=== PATIENT | male | born 1980 | race Caucasian/White ===

== ENCOUNTER 2022-02-17 07:41 | Outpatient (CLI) | payer BC, SELFPAY ==
[2022-02-17 12:00] LABS: Cholesterol* 176 mg/dL (90-199); Glucose* 95 mg/dL (60-115)
[2022-02-17 12:01] LABS: HDL Cholesterol* 49 mg/dL (>=40); LDL Cholesterol Calculated 108 mg/dL (<100); Triglycerides* 95 mg/dL (40-149)
== END 2022-02-17 07:42 | disposition home or self-care (01) ==
LOC: NFLDREF 07:41
PROVIDERS: PCP Family Medicine; Visit Provider Family Medicine
DX: Z13.1 Encounter for screening for diabetes mellitus (principal); Z13.6 Encounter for screening for cardiovascular disorders
CPT/HCPCS: 80061; 82947

== ENCOUNTER 2022-03-19 12:33 | Emergency (ER) | payer BC, SELFPAY ==
[2022-03-19 13:10] VITALS: BP 107/73; PULSE 76; RESP 18; TEMP 36.4; O2SAT 97; BMI 37.9
--- NOTE | 2022-03-19 13:38 | CRLHL7_ITS ---
For Patients: As a result of the Century Cures Act, medical imaging exams and procedure reports are released immediately into your electronic medical record. You may view this report before your referring provider. If you have questions, please contact your health care provider. INDICATION: Left-sided flank pain. TECHNIQUE: CT abdomen and pelvis without contrast. COMPARISON: None. FINDINGS: Lower chest: Unremarkable. Liver: Normal in size and attenuation. No suspicious masses. Gallbladder and bile ducts: No stones or inflammation. No biliary dilatation. Pancreas: Unremarkable. No mass or inflammation. Spleen: Normal in size. No masses. Adrenal glands: Normal in size. No nodules. Kidneys: Normal in size. No suspicious masses, stones, or hydronephrosis. GI tract: Unremarkable. Normal in caliber. No sign of mass or inflammation. Normal appendix. Vasculature: Abdominal aorta is normal in caliber. Lymph nodes: No lymphadenopathy. Peritoneum/Abdominal Wall: Unremarkable. No sign of mass or infiltration. No free air or significant free fluid. Pelvic organs: Unremarkable. No pelvic masses. Bones: Unremarkable for age. IMPRESSION: Unremarkable CT of the abdomen and pelvis. No findings to explain left flank pain. Please note that all CT scans at this facility use dose modulation, iterative reconstruction, and/or weight-based dosing when appropriate to reduce radiation dose to as low as reasonably achievable. Dictated by Raymundo Carrizales MD @ 03/19/2022 2:32:14 PM (Electronically Signed)
--- NOTE | 2022-03-19 13:46 | ED_ITS ---
HPI - Abdominal Pain General Chief Complaint: Flank Pain Stated Complaint: Pain in left flank area Time Seen by Provider: 03/19/22 13:10 History of Present Illness HPI narrative: 41-year-old man presenting to the emergency department with concern of left flank area pain now 4th day. Slight dysuria. Also with a sense of urgency. Seems like it takes longer to urinate as well and not getting quite as much. He has had no fever no hematuria. History of back problems and thought maybe he pulled something but this is different. It feels better to stand or lean against something pressure on his back. Ice night he says is pretty rough company by pain nausea. Admittedly better now. Pain was occurring independently movement which was atypical for him with his back pains before. Admittedly this was rather sudden onset. treatment attempted with hydration 400 mg of ibuprofen. Just not getting any relief. Also tried heating pad. Does have a 10-week-old at home and thought maybe he had pulled something. He gestures in an area consistent with flank to groin on the left side. Does recall family history where his dad had nephrolithiasis Related Data Home Medications Medication Instructions Recorded Confirmed multivitamin with iron 1 tab PO QDAY 02/09/22 03/19/22 Previous Rx's Medication Instructions Recorded cyclobenzaprine 5 mg tablet 5 mg PO TID PRN muscle spasm #20 02/09/22 tabs tamsulosin 0.4 mg capsule (Flomax) 0.4 mg PO DAILY #7 caps 03/19/22 Allergies Allergy/AdvReac Type Severity Reaction Status Date / Time No Known Allergies Allergy Unknown Verified 03/19/22 11:26 Review of Systems Status of ROS Reports: 10 or more systems reviewed and unremarkable except as noted in History and below [facility] Medical History No significant past medical history Surgical History History of arthroscopy of left knee (1995) History of lumbar discectomy (2007) Family History (Updated 02/09/22 @ 15:13 by Derek Camara MD) Father Coronary artery disease Diabetes Mother Diabetes Unknown Coronary artery disease Skin cancer Bone cancer Thyroid cancer Maternal Grandmother Stroke Social History (Updated 02/09/22 @ 15:10 by Derek Camara MD) Narrative: Social history: . He has 3 sons ages 10, 7, 5, 4wks. 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 has family near [place]. Habits: No tob or rec drug use. Alcohol use at 3 drinks/wk. Smoking Status: Never smoker Non-prescribed substance use: denies use Little interest or pleasure in doing things: not at all Feeling down, depressed, or hopeless: several days Exam Narrative: Exam Narrative: Pleasant. Large man. No significant distress. Breathing easily. Skin is warm and dry without rash. Cardiovascular was regular rate and rhythm Lungs are clear. Abdomen is overweight soft. Not really reproducible tenderness. Back is nontender. Extremities are without edema. Well perfused. Indeed transitions without difficulty but notes increased sense of intra-abdominal pressure when seated forward. Symmetrical pulses Genitourinary not examined. Const: Vital Signs, click to edit/add: Vital Signs - 24 hr 03/19/22 13:10 Temperature 97.5 F L Pulse Rate [Right Pulse Oximeter] 76 Respiratory Rate 18 Blood Pressure [Ri ght Upper Arm] 107/73 Pulse Oximetry 97 Oxygen Delivery Me thod Room Air Documenting provider has reviewed patient's vital signs: yes Course Course Hospital Course: Labs were drawn. IV established. Given normal saline and ketorolac with improvement in symptoms. Vital Signs Vital signs: Initial Vital Signs Temperature 97.5 F L 03/19/22 13:10 Temperature Source Temporal Artery Scan 03/19/22 13:10 Pulse Rate 76 03/19/22 13:10 Respiratory Rate 18 03/19/22 13:10 Blood Pressure 107/73 03/19/22 13:10 Blood Pressure Mean 84 03/19/22 13:10 Blood Pressure Position Sitting 03/19/22 13:10 Pulse Oximetry 97 03/19/22 13:10 Oxygen Delivery Method 03/19/22 13:10 Vital Signs Temperature 97.5 F L 03/19/22 13:10 Pulse Rate 76 03/19/22 13:10 Respiratory Rate 18 03/19/22 13:10 Blood Pressure 107/73 03/19/22 13:10 Pulse Oximetry 97 03/19/22 13:10 Oxygen Delivery Method 03/19/22 13:10 Temperature 97.5 F L 03/19/22 13:10 Pulse Rate 62 03/19/22 14:53 Respiratory Rate 18 03/19/22 14:53 Blood Pressure 112/62 03/19/22 14:53 Pulse Oximetry 98 03/19/22 14:53 Oxygen Delivery Method 03/19/22 13:10 MDM - Abdominal Pain MDM Narrative Medical decision making narrative: Certainly a good story for nephrolithiasis. Given this 1st occurrence CT imaging I think was warranted. I did review these images and can see multiple calcifications may be more phleboliths... Do not see hydronephrosis. Radiology over-read of imaging did not appreciate anything to account for the left flank area pain is described. No evidence of vascular disruption. Urinalysis with small hematuria. Perhaps passed stone and this is residual? Medical Records Attestation: I reviewed the patient's medical records. Lab Data Attestation: I reviewed the patient's lab results. Labs: Lab Results 03/19/22 03/19/22 03/19/22 Range/Units 13:38 14:10 14:10 WBC 6.17 (4.50-11.00) K/uL RBC 4.79 (4.30-5.90) m/uL Hgb 14.1 (13.5-17.5) gm/dL Hct 42.7 (37.0-53.0) % MCV 89 (80-100) fL MCH 29 (26-34) pg MCHC 33 (32-36) gm/dL RDW Coeff of Irish 12.0 (11.5-15.5) % Plt Count 241 (140-440) K/uL Neut % (Auto) 51.8 (42.0-72.0) % Lymph % (Auto) 36.3 (20-44) % [place] % (Auto) 8.6 (0.0-11.0) % Eos % (Auto) 2.8 (0.0-7.0) % Baso % (Auto) 0.3 (0.0-3.0) % Neut # (Auto) 3.20 (1.7-7.0) K/uL Lymph # (Auto) 2.24 (0.90-2.90) K/uL [place] # (Auto) 0.50 (0.00-0.90) K/UL Eos # (Auto) 0.17 (0.00-0.50) K/uL Baso # (Auto) 0.02 (0.00-0.30) K/uL Abs Immat Gran (auto) 0.01 (0.00-0.30) K/uL Sodium 139 (135-149) mmol/L Potassium 4.2 (3.6-5.1) mmol/L Chloride 102 (96-114) mmol/L Carbon Dioxide 29 (20-32) mmol/L BUN 15 (5-24) mg/dL Creatinine 0.8 (0.5-1.5) mg/dL Estimated Creat Clear 150.05 Estimated GFR 113 ml/min Glucose 90 (60-115) mg/dL Calcium 9.3 (8.4-10.6) mg/dL Urine Color Yellow (Yellow) Urine Appearance Clear (Clear) Urine pH 7.0 (5.0-8.5) Ur Specific [place] 1.010 (1.000-1.030) Urine Protein Negative (Negative) Urine Glucose (UA) Negative (Negative) Urine Ketones Negative (Negative) Urine Blood 1+ A (Negative) Urine Nitrite Negative (Negative) Urine Bilirubin Negative (Negative) Urine Urobilinogen 0.2 (0.2-1.0) Ur Leukocyte Esterase Negative (Negative) Urine RBC 2-5 A (0-2) Urine WBC 0-2 (0-5) Ur Squamous Epith Cells None (None-Few) Urine Bacteria None (None) Discharge Plan Discharge Clinical Impression: Hematuria, Flank pain Patient Disposition: Home, Self-Care Condition: Improved Additional Instructions: focus on hydration. Can take up to 800 mg of ibuprofen per dose. This can be combined with your prescribed medications. The Flomax can help with ureteral spasm and subsequent pain -- take daily over the next few days. Follow up for pain lasting for 5 more days.. Be seen otherwise for marked increase in/uncontrolled pain, repeated vomiting, fever. Strain urine over this next week. Percocet and Zofran from [facility] Prescriptions: New tamsulosin [Flomax] 0.4 mg capsule 0.4 mg PO DAILY Qty: 7 1RF No Action multivitamin with iron Tablet 1 tab PO QDAY cyclobenzaprine 5 mg tablet 5 mg PO TID PRN (Reason: muscle spasm) Qty: 20 2RF Follow Up/Referrals: Provider,Not a Local [Primary Care Provider] - Stand Alone Forms: [facility] Info Instructions
[2022-03-19] MEDS: 0.9 % SODIUM CHLORIDE 1000 ml 1,000 ML IV (14:05)
[2022-03-19] MEDS: KETOROLAC 30 MG/ML inj IVP (14:05)
[2022-03-19 14:20] LABS: Basophils Absolute Auto 0.02 K/uL (0.00-0.30); Basophils Percent Auto 0.3 % (0.0-3.0); Eosinophils Absolute Auto 0.17 K/uL (0.00-0.50); Eosinophils Percent Auto 2.8 % (0.0-7.0); Hematocrit 42.7 % (37.0-53.0); Hemoglobin* 14.1 gm/dL (13.5-17.5); Immature Granulocytes Abs Auto 0.01 K/uL (0.00-0.30); Lymphocytes Absolute Auto 2.24 K/uL (0.90-2.90); Lymphocytes Percent Auto 36.3 % (20-44); Mean Corpuscular HGB Conc 33 gm/dL (32-36); Mean Corpuscular Hemoglobin 29 pg (26-34); Mean Corpuscular Volume 89 fL (80-100); Monocytes Percent Auto 8.6 % (0.0-11.0); Neutrophils Percent Auto 51.8 % (42.0-72.0); Platelet Count* 241 K/uL (140-440); Red Blood Count 4.79 m/uL (4.30-5.90); White Blood Count* 6.17 K/uL (4.50-11.00)
[2022-03-19 14:32] LABS: Slide Review Reflex No
[2022-03-19 14:34] LABS: Chloride* 102 mmol/L (96-114); Sodium* 139 mmol/L (135-149)
[2022-03-19 14:35] LABS: Potassium* 4.2 mmol/L (3.6-5.1)
[2022-03-19 14:35] LABS: Appearance Urine Clear (Clear); Bilirubin Urine Negative (Negative); Blood Urine 1+ (Negative); Color Urine Yellow (Yellow); Glucose Urine Negative (Negative); Ketones Urine Negative (Negative); Leukocyte Esterase Urine Negative (Negative); Nitrite Urine Negative (Negative); Protein Urine Negative (Negative); Urobilinogen Urine 0.2 (0.2-1.0)
[2022-03-19 14:37] LABS: Creatinine* 0.8 mg/dL (0.5-1.5); Est. Creatinine Clearance* 150.05; Estimated Glomerular Filt Rate 113 ml/min
[2022-03-19 14:38] LABS: Blood Urea Nitrogen* 15 mg/dL (5-24); Calcium* 9.3 mg/dL (8.4-10.6); Carbon Dioxide* 29 mmol/L (20-32); Glucose* 90 mg/dL (60-115)
[2022-03-19 14:53] VITALS: BP 112/62; PULSE 62; RESP 18; O2SAT 98
[2022-03-19 14:57] LABS: WBC Urine 0-2 (0-5)
--- NOTE | 2022-03-19 15:56 | ED.NURSE ---
[facility] for percocet and zofran given to pt
== END 2022-03-19 15:57 | disposition home or self-care (01) ==
PROVIDERS: Emergency Provider Family Medicine
DX: R31.9 Hematuria, unspecified (principal); R10.9 Unspecified abdominal pain
CPT/HCPCS: 36415; 74176; 80048; 81003; 81015; 85025; 96374; 99284; J1885; J7030

== ENCOUNTER 2023-04-17 19:20 | Emergency (ER) | payer BC, SELFPAY ==
[2023-04-17 19:36] VITALS: BP 113/68; PULSE 77; RESP 16; TEMP 36.6; O2SAT 97; BMI 37.5
--- NOTE | 2023-04-17 19:53 | ED_ITS ---
HPI - General Adult General Date Seen: 04/17/23 Chief complaint: Laceration/Wound Stated complaint: Head wound bleeding, alert Time Seen by Provider: 04/17/23 19:31 Source: patient Mode of arrival: ambulatory Limitations: no limitations History of Present Illness HPI narrative: Patient is a 42-year-old male presents emergency department for laceration to his left scalp above the hairline on the front. 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 States there was quite a bit of blood so came to the emergency department to be evaluated. Denies any lightheadedness, dizziness, numbness, weakness. States he feels well at this time. Is not on any blood thinners. No other concerns at this time. Related Data Home Medications Medication Instructions Recorded Confirmed multivitamin with iron 1 tab PO QDAY 02/09/22 01/28/23 fluticasone propionate 50 1 spray intranasal QDAY 01/07/23 01/28/23 mcg/actuation nasal spray,suspension (Flonase Allergy Relief) Previous Rx's Medication Instructions Recorded bupropion HCl 300 mg 24 hr tablet, 300 mg PO QAM #90 tabs 02/22/23 extended release (Wellbutrin XL) Allergies Allergy/AdvReac Type Severity Reaction Status Date / Time No Known Drug Allergies Allergy Verified 01/28/23 13:46 Review of Systems Status of ROS: Reports: 6 or more systems reviewed and unremarkable except as noted in History and below PFSH PFS Medical History 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 - Other obesity due to excess calories (ICD-10) Major depression, single episode ?F32.9 - Major depressive disorder, single episode, unspecified (ICD-10) Surgical History S/P vasectomy ?Z98.52 - Vasectomy status (ICD-10) History of lumbar discectomy (2007) ?Z98.890 - Other specified postprocedural states (ICD-10) History of arthroscopy of left knee (1995) ?Z98.890 - Other specified postprocedural states (ICD-10) Family History Father Coronary artery disease Diabetes Mother Diabetes Unknown Coronary artery disease Skin cancer Bone cancer Thyroid cancer Maternal Grandmother Stroke Social History Narrative: Social history: . He has 3 sons ages 10, 7, 5, 4wks. 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 Habits: No tob or rec drug use. Alcohol use at 3 drinks/wk. Smoking Status: Never smoker Non-prescribed substance use: denies use Little interest or pleasure in doing things: several days Feeling down, depressed, or hopeless: several days Exam Const: Vital Signs, click to edit/add: Vital Signs - 24 hr 04/17/23 19:36 Temperature 97.8 F Pulse Rate [Right Pulse Oximeter] 77 Respiratory Rate 16 Blood Pressure [Ri ght Upper Arm] 113/68 Pulse Oximetry 97 Oxygen Delivery Me thod Room Air Course Vital Signs Vital signs: Initial Vital Signs Temperature 97.8 F 04/17/23 19:36 Temperature Source Temporal Artery Scan 04/17/23 19:36 Pulse Rate 77 04/17/23 19:36 Pulse Rhythm Regular 04/17/23 19:36 Respiratory Rate 16 04/17/23 19:36 Blood Pressure 113/68 04/17/23 19:36 Blood Pressure Mean 83 04/17/23 19:36 Blood Pressure Position Sitting 04/17/23 19:36 Pulse Oximetry 97 04/17/23 19:36 Oxygen Delivery Method Room Air 04/17/23 19:36 Vital Signs Temperature 97.8 F 04/17/23 19:36 Pulse Rate 77 04/17/23 19:36 Respiratory Rate 16 04/17/23 19:36 Blood Pressure 113/68 04/17/23 19:36 Pulse Oximetry 97 04/17/23 19:36 Oxygen Delivery Method Room Air 04/17/23 19:36 Temperature 97.8 F 04/17/23 19:36 Pulse Rate 77 04/17/23 19:36 Respiratory Rate 16 04/17/23 19:36 Blood Pressure 113/68 04/17/23 19:36 Pulse Oximetry 97 04/17/23 19:36 Oxygen Delivery Method Room Air 04/17/23 19:36 Medical Decision Making MDM Narrative Medical decision making narrative: Patient is a 42-year-old male with no medical issues who presents emergency department after he hit his head against the luminal window. There is a 1 cm laceration to his left frontal hairline. It is not currently bleeding. There is very small separation of the wound edges. When I attempt to pull the wound edges apart they barely move. The wound was cleaned. I do not believe sutures or harsh are necessary at this time and will just put some skin glue over the area. It was a relatively mild head injury not not believe imaging is necessary at this time. He is having no focal neurological deficits. Very unlikely to have an intracranial hemorrhage from this type of injury. He can be discharged home he agrees with this plan. Discharge Plan Discharge Clinical Impression: Laceration Patient Disposition: Home, Self-Care Condition: Stable Instructions: Head Laceration (ED) Additional Instructions: Follow-up with the primary care provider. Return for new worsening symptoms. Prescriptions: No Action multivitamin with iron Tablet 1 tab PO QDAY fluticasone propionate [Flonase Allergy Relief] 50 mcg/actuation spray,suspension 1 spray intranasal QDAY Rx Instructions: administer into each nostril bupropion HCl [Wellbutrin XL] 300 mg tablet extended release 24 hr 300 mg PO QAM Qty: 90 1RF Follow Up/Referrals: Dustin Walter MD [Primary Care Provider] - Stand Alone Forms: [employer] Info Instructions
== END 2023-04-17 20:15 | disposition home or self-care (01) ==
LOC: ED 20:14
PROVIDERS: Emergency Provider Student in an Organized Health Care Education/Training Program; PCP Family Medicine
DX: S01.01XA Laceration without foreign body of scalp, initial encounter (principal); W22.09XA Striking against other stationary object, initial encounter
CPT/HCPCS: 12001; 99282

== ENCOUNTER 2024-05-15 14:15 | Outpatient (RCR) | payer BC, SELFPAY | END 2024-09-12 23:59 | disposition home or self-care (01) | PROVIDERS: PCP Family Medicine; Visit Provider Physician Assistant | DX: M54.12 Radiculopathy, cervical region (principal); M54.2 Cervicalgia; M25.511 Pain in right shoulder; R53.1 Weakness; Z51.89 Encounter for other specified aftercare | CPT/HCPCS: 97110; 97140; 97161 ==

== ENCOUNTER 2024-05-22 18:42 | Emergency (ER) | payer BC, SELFPAY ==
[2024-05-22 18:46] VITALS: BP 158/80; PULSE 102; RESP 18; TEMP 36.5; O2SAT 96; BMI 37.7
--- NOTE | 2024-05-22 18:54 | CRLHL7_ITS ---
For Patients: As a result of the Cures Act, medical imaging exams and procedure reports are released immediately into your electronic medical record. You may view this report before your referring provider. If you have questions, please contact your health care provider. INDICATION: Right elbow pain, injury TECHNIQUE: Elbow radiograph 3 views right COMPARISON: None FINDINGS: Bone: No acute fractures or aggressive bone lesions are identified. Joint: The elbow joint is unremarkable. No significant displacement of the anterior or posterior fat pads noted to suggest an effusion. Soft tissue: Unremarkable. No radiopaque foreign bodies are seen. IMPRESSION: 1. No acute osseous injuries or abnormalities are noted. Dictated by: Migel Fournier MD @ 05/22/2024 19:24:30 (Electronically Signed)
[2024-05-22] MEDS: OXYCODONE 5 MG TABLET PO (18:59)
[2024-05-22 19:00] VITALS: TEMP 36.5
[2024-05-22] MEDS: IBUPROFEN 200 MG TABLET 400 MG PO (19:00)
--- NOTE | 2024-05-22 19:01 | ED_ITS ---
HPI - General Adult General Date Seen: 05/22/24 Chief complaint: Extremity Pain/Injury, Upper Stated complaint: R - Elbow injury Time Seen by Provider: 05/22/24 18:51 Source: patient Mode of arrival: ambulatory Limitations: no limitations History of Present Illness HPI narrative: Patient is a 56-year-old male who says that he grabbed his dog's collar she was running at full speed to stop her from leaving the yd. His right arm was pulled back away from his body any felt a pop in his upper arm. He now has pain and swelling in what he calls his ?elbow pit, the antecubital fossa, and is unable to flex at the elbow. No other injuries or complaints. Related Data Home Medications ?Medication ?Instructions ?Recorded ?Confirmed multivitamin with iron 1 tab PO QDAY 02/09/22 05/07/24 fluticasone propionate 50 1 spray intranasal QDAY 01/07/23 05/07/24 mcg/actuation nasal spray,suspension (Flonase Allergy Relief) Previous Rx's ?Medication ?Instructions ?Recorded escitalopram oxalate 10 mg tablet 10 mg PO QDAY #90 tabs 10/07/23 cyclobenzaprine 5 mg tablet 5 - 10 mg (1 - 2 x 5 mg) PO QHS 04/27/24 PRN muscle spasm #20 tabs bupropion HCl 150 mg 24 hr tablet, 150 mg PO QAM #90 tabs 05/07/24 extended release Allergies Allergy/AdvReac Type Severity Reaction Status Date / Time No Known Drug Allergies Allergy Verified 05/07/24 08:18 [facility] Medical History Acute sinusitis ?J01.90 - Acute sinusitis, unspecified (ICD-10) 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 - Other obesity due to excess calories (ICD-10) Major depression, single episode ?F32.9 - Major depressive disorder, single episode, unspecified (ICD-10) Surgical History S/P vasectomy ?Z98.52 - Vasectomy status (ICD-10) History of lumbar discectomy (2007) ?Z98.890 - Other specified postprocedural states (ICD-10) History of arthroscopy of left knee (1995) ?Z98.890 - Other specified postprocedural states (ICD-10) Family History Father Coronary artery disease Diabetes Mother Diabetes Unknown Coronary artery disease Skin cancer Bone cancer Thyroid cancer Maternal Grandmother Stroke Social History Narrative: Social history: . He has 3 sons ages 10, 7, 5, 4wks. 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 Habits: No tob or rec drug use. Alcohol use at 3 drinks/wk. Smoking Status: Never smoker Second hand tobacco smoke exposure: No How often do you have a drink containing alcohol: never AUDIT-C Alcohol total score: 0 Non-prescribed substance use: denies use Little interest or pleasure in doing things: not at all Feeling down, depressed, or hopeless: not at all Exam Narrative: Exam Narrative: Vital signs reviewed Examination of the right upper extremity shows some mild swelling of the antecubital fossa, some tenderness over the biceps. No significant bruising, no erythema. No bony tenderness over the olecranon. Forearm and hand are atraumatic. Shoulder nontender to palpation. Const: Vital Signs, click to edit/add: Vital Signs - 24 hr 05/22/24 18:46 05/22/24 19:00 Temperature 97.7 F 97.7 F Pulse Rate [Right Pulse Oximeter] 102 H Respiratory Rate 18 Blood Pressure [Le ft Upper Arm] 158/80 H Pulse Oximetry 96 Oxygen Delivery Me thod Room Air Documenting provider has reviewed patient's vital signs: yes Course Course ED Course: Clinically I suspect a distal biceps tendon rupture, will obtain x-ray of the elbow to rule out bony injury, plan for sling and early orthopedic referral. He was given ibuprofen 400 mg and oxycodone 1 5 mg tablet here. Vital Signs Vital signs: Initial Vital Signs Temperature 97.7 F 05/22/24 18:46 Temperature Source Temporal Artery Scan 05/22/24 18:46 Pulse Rate 102 H 05/22/24 18:46 Respiratory Rate 18 05/22/24 18:46 Blood Pressure 158/80 H 05/22/24 18:46 Blood Pressure Mean 106 H 05/22/24 18:46 Blood Pressure Position Sitting 05/22/24 18:46 Pulse Oximetry 96 05/22/24 18:46 Oxygen Delivery Method Room Air 05/22/24 18:46 Vital Signs Temperature 97.7 F 05/22/24 18:46 Pulse Rate 102 H 05/22/24 18:46 Respiratory Rate 18 05/22/24 18:46 Blood Pressure 158/80 H 05/22/24 18:46 Pulse Oximetry 96 05/22/24 18:46 Oxygen Delivery Method Room Air 05/22/24 18:46 Temperature 97.7 F 05/22/24 19:00 Pulse Rate 102 H 05/22/24 18:46 Respiratory Rate 18 05/22/24 18:46 Blood Pressure 158/80 H 05/22/24 18:46 Pulse Oximetry 96 05/22/24 18:46 Oxygen Delivery Method Room Air 05/22/24 18:46 Medications Administered Medications: Discontinued Medications Generic Name Dose Route Start Last Admin Trade Name Davonq PRN Reason Stop Dose Admin Ibuprofen 400 mg 05/22/24 18:54 05/22/24 19:00 Ibuprofen 200 Mg Tablet PO 05/22/24 18:55 400 mg ONCE ONE Administration Oxycodone HCl 5 mg 05/22/24 18:54 05/22/24 18:59 Oxycodone 5 Mg Tablet PO 05/22/24 18:55 5 mg ONCE ONE Administration Medical Decision Making Imaging Data Elbow x-ray: Radiologist's impression: Patient: Lexa Villalobos MR#: [id number] : 1980 Acct:[id number] Loc: ED Service Date: 05/22/[address]: Ordering Physician: Yarelis Catalan M.D. Date of Service: 05/22/24 Procedure(s): XR elbow RT min 3V Accession Number(s): [id number] cc: Yarelis Catalan M.D.; Dustin Walter M.D.~ For Patients: As a result of the Cures Act, medical imaging exams and procedure reports are released immediately into your electronic medical record. You may view this report before your referring provider. If you have questions, please contact your health care provider. INDICATION: Right elbow pain, injury TECHNIQUE: Elbow radiograph 3 views right COMPARISON: None FINDINGS: Bone: No acute fractures or aggressive bone lesions are identified. Joint: The elbow joint is unremarkable. No significant displacement of the anterior or posterior fat pads noted to suggest an effusion. Soft tissue: Unremarkable. No radiopaque foreign bodies are seen. IMPRESSION: 1. No acute osseous injuries or abnormalities are noted. Dictated by: Migel Fournier MD @ 05/22/2024 19:24:30 Discharge Plan Discharge Clinical Impression: Rupture of right distal biceps tendon Patient Disposition: Home, Self-Care Condition: Stable Instructions: Tendon Rupture (ED) Additional Instructions: Orthopedic follow-up as scheduled. Ibuprofen and/or Tylenol as needed for pain, ice liberally over the next few days to week. Oxycodone if needed for severe uncontrolled pain. This is most likely a surgical problem, timely orthopedic follow-up is very important. Prescriptions: No Action multivitamin with iron Tablet 1 tab PO QDAY bupropion HCl 150 mg tablet extended release 24 hr 150 mg PO QAM Qty: 90 1RF fluticasone propionate [Flonase Allergy Relief] 50 mcg/actuation spray,suspension 1 spray intranasal QDAY Rx Instructions: administer into each nostril cyclobenzaprine 5 mg tablet 5 - 10 mg PO QHS PRN (Reason: muscle spasm) Qty: 20 0RF escitalopram oxalate 10 mg tablet 10 mg PO QDAY Qty: 90 1RF Follow Up/Referrals: Dustin Walter MD [Primary Care Provider] - Stand Alone [facility]: [facility] Info Instructions
--- OUTSIDE RECORDS SUMMARY | 2024-05-22 19:33 | XMS_ITS | Clinical Summary ---
Author Organization [employer] [facility] Address [place], [place] [address] Care Team Providers Care Balancing Machine Set Up Worker Name Role Phone Pcp, No Primary Care Provider Unavailabl e Allergies No known active allergies Medications No known medications Social History Tobacco Use Types Packs/Day Years Used Date Smoking Tobacco: Never Smokeless Tobacco: Never Tobacco Cessation:Counseling Given: Yes Alcohol Use Standard Drinks/Week Comments Yes 0 (1 standard drink = 0.6 oz pur e alcohol) Sex and Gender Information Value Date Recorded Sex Assigned at Not on file Gender Identity Not on file Sexual Orientation Not on file Obstetrics History Last Filed Vital Signs Vital Sign Reading Time Taken Comments Blood Pressure 127/80 06/30/2021 3:19 PM UNINDENTURED APPRENTICE Pulse 80 06/30/2021 3:19 PM UNINDENTURED APPRENTICE Temperature 36.5 ??C (97.7 ??F) 06/30/2021 3:19 PM CS T Respiratory Rate 16 06/30/2021 3:19 PM UNINDENTURED APPRENTICE Oxygen Saturation 97% 06/30/2021 3:19 PM UNINDENTURED APPRENTICE Inhaled Oxygen Concentration - - Weight 141.7 kg (312 lb 4.8 oz) 06/30/2021 3:19 PM UNINDENTURED APPRENTICE Height 195.6 cm (6' 5.01) 07/12/2019 8:03 AM CS T Body Mass Index 37.03 07/12/2019 8:03 AM UNINDENTURED APPRENTICE Plan of Treatment Health Maintenance Due Date Last Done Comments Tdap 1989 Depression screening for age 12+ 1990 HIV for age 15-65 1993 Hepatitis C screening for ag e 18-79 1996 Tetanus booster 1998 BMI (ht and wt on same day) for age 18+ 07/12/2020 07/12/2019, 06/03/2018 Colonoscopy through age 75 2023 Lipids for age 45-75 2023 COVID-19 vaccine series ( season) 2024 11/21/2020, 10/31/2020 Influenza for age 9-49 04/01/2024 Pneumococcal series for age 6-64 Aged Out No longer eligible b ased on patient's age to complete this topic Care Teams Balancing Machine Set Up Worker Relationship Specialty Start Date End Date Pcp, No . PCP - General 06/03/18
[2024-05-22 19:57] VITALS: BP 135/74; PULSE 89; RESP 18; TEMP 36.5; O2SAT 96
[2024-05-22 19:58] VITALS: BP 135/74; PULSE 89; RESP 18; TEMP 36.5
== END 2024-05-22 19:58 | disposition home or self-care (01) ==
LOC: ED 19:31
PROVIDERS: Emergency Provider Emergency Medicine; PCP Family Medicine
DX: S46.211A Strain of muscle, fascia and tendon of other parts of biceps, right arm, initial encounter (principal)
CPT/HCPCS: 73080; 99283; 99284; A9270

== ENCOUNTER 2024-05-29 07:02 | Outpatient (CLI) | payer BC, SELFPAY ==
--- OUTSIDE RECORDS SUMMARY | 2024-05-29 07:03 | XMS_ITS | Clinical Summary ---
Author Organization [employer] [facility] Address [place], [place] [address] Care Team Providers Care Icu Rn Name Role Phone Pcp, No Primary Care [...] Comments Blood Pressure 127/80 06/30/2021 3:19 PM RECEIVING COORDINATOR Pulse 80 06/30/2021 3:19 PM RECEIVING COORDINATOR Temperature 36.5 ??C (97.7 ??F) 06/30/2021 3:19 PM CS T Respiratory Rate 16 06/30/2021 3:19 PM RECEIVING COORDINATOR Oxygen Saturation 97% 06/30/2021 3:19 PM RECEIVING COORDINATOR Inhaled Oxygen Concentration - - Weight 141.7 kg (312 lb 4.8 oz) 06/30/2021 3:19 PM RECEIVING COORDINATOR Height 195.6 cm (6' 5.01) 07/12/2019 8:03 AM CS T Body Mass Index 37.03 07/12/2019 8:03 AM RECEIVING COORDINATOR Plan of Treatment Health Maintenance Due Date [...] age to complete this topic Care Teams Icu Rn Relationship Specialty Start Date End Date Pcp, No . PCP - General 06/03/18
--- NOTE | 2024-05-29 07:15 | MR_ITS ---
[address] [address] Phone:?[phone] Fax:?[phone] Referring Physician Information: Glen Richards M.D. [address] [place] [id number] Phone:?[phone] Fax:?[phone] Patient:Louis Villalobos Avi.B:?1980 Sex:?Male Phone:?[phone] [facility] MRN:?[id number] Exam Date:?05/29/2024 EXAM: MRI EXAMINATION OF THE RIGHT ELBOW CLINICAL INFORMATION: Right elbow pain. Injury. No history of surgery to this area. Evaluate biceps tendon tear. TECHNICAL INFORMATION: Axial PD and T2. Coronal PD, T2, STIR and T1. Sagittal PD and T2-weighted images acquired. No prior studies for comparison. INTERPRETATION: Bones, joint and osteochondral surfaces: No significant elbow joint effusion. No discrete loose body is seen. No evidence for an occult fracture or osseous contusion. No discrete osteochondral lesion is seen. No appreciable changes of elbow joint osteoarthritis. No other abnormal marrow edema pattern identified. Tendons: The brachialis and triceps tendon insertions are seen to be intact. Residua of injury and complete rupture of the expected radial tuberosity insertion of the biceps brachii tendon. As seen on series 12 image 21 as well as series 6 images 22 through 27, thickened and and irregular torn tendon fibers are retracted to the level of the elbow joint line. Moderate soft tissue fluid and edema signal to indicate associated hemorrhage and inflammation. The common flexor origin at the medial humeral epicondyle is intact. Series 6 image 22 as well as series 9 images 21 through 23 demonstrate a 0.9 cm AP by 0.4 cm craniocaudal low to moderate grade partial-thickness tear through the central three fourths of the common extensor tendon origin. Mild to moderate surrounding thickening of the tendon fibers. Ligaments: The ulnar collateral ligament is intact without evidence of acute sprain or tear. The radial collateral and lateral ulnar collateral ligaments appear grossly intact. Nerves: The ulnar nerve appears unremarkable coursing past the elbow and through the cubital tunnel. CONCLUSION: 1. Acute or subacute injury and complete rupture of the expected biceps brachii tendon insertion. Torn tendon fibers are retracted to the level of the elbow joint line. Moderate associated soft tissue hemorrhage and inflammation. 2. No occult fracture, osseous contusion or osteochondral lesion. 3. Tendinopathy with mild to moderate thickening of the common extensor tendon origin. There is a 9 x 4 mm low to moderate grade partial-thickness tear through the central three fourths of the tendon origin. 4. Intact appearance of the elbow ligaments, specifically without acute injury. 5. No joint effusion or loose body. KES Electronically signed on 05/29/2024 12:15:00 PM by Hubert Le M.D.
== END 2024-05-29 07:03 | disposition home or self-care (01) ==
LOC: MRI 07:02
PROVIDERS: PCP Family Medicine; Visit Provider Orthopaedic Surgery
DX: M25.521 Pain in right elbow (principal); S46.211A Strain of muscle, fascia and tendon of other parts of biceps, right arm, initial encounter
CPT/HCPCS: 73221

== ENCOUNTER 2024-06-05 09:30 | Outpatient (CLI) | payer BC, SELFPAY ==
--- OUTSIDE RECORDS SUMMARY | 2024-06-07 11:02 | XMS_ITS | Clinical Summary ---
Author Organization [employer] [facility] Address [place], [place] [address] Care Team Providers Care Survey Crew Chief Name Role Phone Pcp, No Primary Care [...] Comments Blood Pressure 127/80 06/30/2021 3:19 PM LIVE IN COMPANION Pulse 80 06/30/2021 3:19 PM LIVE IN COMPANION Temperature 36.5 ??C (97.7 ??F) 06/30/2021 3:19 PM CS T Respiratory Rate 16 06/30/2021 3:19 PM LIVE IN COMPANION Oxygen Saturation 97% 06/30/2021 3:19 PM LIVE IN COMPANION Inhaled Oxygen Concentration - - Weight 141.7 kg (312 lb 4.8 oz) 06/30/2021 3:19 PM LIVE IN COMPANION Height 195.6 cm (6' 5.01) 07/12/2019 8:03 AM CS T Body Mass Index 37.03 07/12/2019 8:03 AM LIVE IN COMPANION Plan of Treatment Health Maintenance Due Date [...] age to complete this topic Care Teams Survey Crew Chief Relationship Specialty Start Date End Date Pcp, No . PCP - General 06/03/18
== END 2024-06-05 09:31 | disposition home or self-care (01) ==
LOC: NFLDREF 06-07 10:59
PROVIDERS: PCP Family Medicine; Referring Provider Family Medicine; Visit Provider Family Medicine
DX: Z01.818 Encounter for other preprocedural examination (principal); E66.09 Other obesity due to excess calories; Z13.6 Encounter for screening for cardiovascular disorders
CPT/HCPCS: 80048; 80061; 85025

== ENCOUNTER 2024-06-12 10:46 | Day surgery (SDC) | payer BC, SELFPAY ==
[2024-06-12] VITALS (8 sets, daily range): BP systolic 101–130; BP diastolic 60–88; PULSE 65–84; RESP 16–20; TEMP 36.5–36.9; O2SAT 95–98; BMI 39.2
--- OUTSIDE RECORDS SUMMARY | 2024-06-12 10:48 | XMS_ITS | Clinical Summary ---
Author Organization [employer] [facility] Address [place], [place] [address] Care Team Providers Care Bag Mender Name Role Phone Pcp, No Primary Care [...] Comments Blood Pressure 127/80 06/30/2021 3:19 PM GEAR REPAIRER Pulse 80 06/30/2021 3:19 PM GEAR REPAIRER Temperature 36.5 ??C (97.7 ??F) 06/30/2021 3:19 PM CS T Respiratory Rate 16 06/30/2021 3:19 PM GEAR REPAIRER Oxygen Saturation 97% 06/30/2021 3:19 PM GEAR REPAIRER Inhaled Oxygen Concentration - - Weight 141.7 kg (312 lb 4.8 oz) 06/30/2021 3:19 PM GEAR REPAIRER Height 195.6 cm (6' 5.01) 07/12/2019 8:03 AM CS T Body Mass Index 37.03 07/12/2019 8:03 AM GEAR REPAIRER Plan of Treatment Health Maintenance Due Date [...] age to complete this topic Care Teams Bag Mender Relationship Specialty Start Date End Date Pcp, No . PCP - General 06/03/18
[2024-06-12] MEDS: SODIUM CHLORIDE 0.9 % (FLUSH) 10 ML SYRINGE IVF (11:41)
[2024-06-12] MEDS: MIDAZOLAM HCL 1 MG/ML inj IVP (11:55)
[2024-06-12] MEDS: fentaNYL 100 MCG/2 ML inj IVP (11:55)
--- NOTE | 2024-06-12 12:06 | SUR.PREOP ---
TIME?OUT:?right bicep 1150 PT/RN/MDA?VERIFICATION?OF?SURGICAL?SITE,?PROCEDURE,?AND?CONSENT OBTAINED?PRIOR?TO?INVASIVE?PROCEDURE.
--- NOTE | 2024-06-12 13:38 | W.PM.NB ---
Nerve Block Nerve Block Time Seen by Provider: 12:00 Date Seen: 06/12/24 Type of block requested by surgeon for post-operative analgesia: axillary Side: right Time out performed: Yes Verification of patient name: Yes Verification of date of : Yes Site marking: site marked Name of person performing procedure: Vimal Continuous monitoring Was continuous monitoring of O2 sat, B/P, monitor car operator, recorded every 15 minutes?: Yes Procedure Checklist: sterile prep, needles and gloves Ultrasound guided. Images saved: Yes Medications given in 5ml increments after negative aspiration: Ropivicaine %: 0.5 mL: 30 Needle gauge: 22 Patient tolerated procedure well: Yes Additional comments: Needle noted adjacent to nerve Block Charges Block Charge (with Pro Fee): Brachial Plexus Use of Ultrasound Machine for Block: Yes- US Guidance/pain block
--- NOTE | 2024-06-12 13:39 | W.ANESCHARGE ---
Anesthesia Charges Start Date/Time Anesthesia Start Date: 06/12/24 Anesthesia Start Time: 12:07 Stop Date/Time Anesthesia Stop Date: 06/12/24 Anesthesia Stop Time: 13:33
--- NOTE | 2024-06-12 13:39 | W.ANESCHARGE ---
Anesthesia Charges Start Date/Time Anesthesia Start Date: 06/12/24 Anesthesia Start Time: 12:07 Stop Date/Time Anesthesia Stop Date: 06/12/24 Anesthesia Stop Time: 13:33
[2024-06-12] MEDS: ACETAMINOPHEN 500 MG TABLET 1000 MG PO (14:22)
--- NOTE | 2024-06-12 14:22 | PM.ORPRC ---
Procedure Note Date of procedure: 06/12/24 Procedure: PREOPERATIVE DIAGNOSIS: Right upper extremity distal biceps tendon tear POSTOPERATIVE DIAGNOSIS: Right upper extremity distal biceps tendon tear NAME OF OPERATION: Primary Repair SURGEON: Glen Richards MD DESIGN/ANIMATION INSTRUCTOR: CHULA Garsia ANESTHESIA: Axillary block plus monitored anesthesia care ESTIMATED BLOOD LOSS: 0 mL. COMPLICATIONS: None. SPECIMENS: None. DRAINS: None. PREOPERATIVE ANTIBIOTICS: Ancef 3 grams INDICATIONS: The patient is a 43-year-old male with a history of a right elbow injury, sustaining full-thickness disruption of the distal biceps tendon. Operative intervention was recommended. The risks, benefits and expected outcomes were discussed in detail. These included but were not limited to: Infection, bleeding, injury to blood vessel or nerve, venous thromboembolism. All questions were answered to their satisfaction. Use of an project construction assistant manager was necessary throughout the case for patient positioning and safety, soft tissue retraction and closure. PROCEDURE: General anesthesia was administered. The patient was placed supine on the operating room table. The right upper extremity was prepped and draped in the usual sterile fashion. The limb was exsanguinated with the Julio bandage. The pneumatic tourniquet was inflated to 250 mm of mercury. A transverse incision was made 4 cm distal to the antecubital crease. Subcutaneous dissection was taken with tenotomy scissors to the antecubital veins which were carefully preserved throughout the case. The lateral antebrachial cutaneous nerve was retracted laterally and carefully protected throughout the case. There was a tube of peritenon which was intact all the way down to the radial tuberosity. This was followed down to the radial tuberosity. It was resected off of the insertion. The Lempert rongeur and the joker elevator were used to debride the radial tuberosity. Dissection was carried proximally, to the biceps tendon. We debrided the distal end of biceps tendon and placed a whipstitch with #2 FiberWire suture. The forearm was placed in maximum supination. We drilled a bicortical guide pin through the radial tuberosity. We drilled an 8.5 mm unicortical socket. We placed the button on the limbs of the whipstitch and advanced it into the socket through the deep guide pin hole and flipped it on the far cortex of proximal radius. We kept the forearm in maximum supination and flexed the elbow while retracting the limbs of the suture. This advanced the distal biceps tendon into the socket to a depth of 10 mm. We placed 1 limb of the suture through the tendon and tied several knots over the top of the tendon. We placed an 7 mm x 10 mm peek interference screw over the radial side of the tendon, pushing it ulnarly. We tied several knots over the top of the screw. This provides an excellent repair of the distal biceps tendon to its anatomic insertion. The wound was irrigated with normal saline. Subcutaneous tissues were closed with a 2-0 Vicryl. Skin was closed with a 3-0 Monocryl in a subcuticular fashion. A dry dressing and sling were applied. Sponge and needle counts were correct x2. The patient tolerated the procedure well. There were no apparent complications. They were carefully transferred to the hospital bed and taken to the postanesthesia care unit in satisfactory condition. PLAN: The patient will be discharged to home. They will follow up in the office next week for a wound check in preparation for occupational therapy. We will begin gentle active range of motion immediately.
[2024-06-12] MEDS: IBUPROFEN 600 MG TABLET PO (14:23)
--- NOTE | 2024-06-12 14:24 | CRLHL7_ITS ---
For Patients: As a result of the Cures Act, medical imaging exams and procedure reports are released immediately into your electronic medical record. You may view this report before your referring provider. If you have questions, please contact your health care provider. Indication: Postop biceps repair Technique: Two fluoroscopic images of the right elbow. Fluoroscopic time 0.05 minutes. IMPRESSION: Fluoroscopic guidance for biceps repair. Dictated by Dustin Goetz MD @ 06/13/2024 12:03:10 PM (Electronically Signed)
== END 2024-06-12 15:15 | disposition home or self-care (01) ==
PROVIDERS: PCP Family Medicine; Visit Provider Orthopaedic Surgery
PROC: (CPT 24341; principal; 2024-06-12 12:30)
DX: S46.211A Strain of muscle, fascia and tendon of other parts of biceps, right arm, initial encounter (principal)
CPT/HCPCS: 24341; 01716; 64415; 73070; 76000; 76942; A4580; A9270; C1713; J2250; J2704; J2795; J3010; J3490

== ENCOUNTER 2024-07-12 16:42 | Emergency (ER) | payer BC, SELFPAY ==
[2024-07-12] VITALS (13 sets, daily range): BP systolic 99–114; BP diastolic 63–75; PULSE 94–115; RESP 24; TEMP 38.3–38.8; O2SAT 94–98; BMI 39.1
--- NOTE | 2024-07-12 16:55 | ED_ITS ---
HPI - General Adult General Time Seen by Provider: 16:55 Date Seen: 07/12/24 Chief complaint: Abdominal Pain Stated complaint: ref from UC-fever, vomiting, diarrhea, both bloody Time Seen by Provider: 07/12/24 16:55 Source: patient, RN notes reviewed and old records reviewed Mode of arrival: ambulatory Limitations: no limitations History of Present Illness HPI narrative: 43-year-old male who comes in with nausea, vomiting, diarrhea. Symptoms started 2 days ago. Has noticed some streaking of blood in his emesis a little blood in the stool. Also some right-sided abdominal pain and fever. Family is ill with upper respiratory symptoms but no GI symptoms. Patient has been taking Tylenol and ibuprofen for this, ibuprofen seems to help more. Denies urinary symptoms. Decreased appetite and poor oral intake by his report. Denies chest pain or shortness of breath. No recent travel. Related Data Home Medications ?Medication ?Instructions ?Recorded ?Confirmed multivitamin with iron 1 tab PO QDAY 02/09/22 07/12/24 fluticasone propionate 50 1 spray intranasal QDAY 01/07/23 07/12/24 mcg/actuation nasal spray,suspension (Flonase Allergy Relief) Previous Rx's ?Medication ?Instructions ?Recorded escitalopram oxalate 10 mg tablet 10 mg PO QDAY #90 tabs 10/07/23 bupropion HCl 150 mg 24 hr tablet, 150 mg PO QAM #90 tabs 05/07/24 extended release cyclobenzaprine 5 mg tablet 5 - 10 mg (1 - 2 x 5 mg) PO QHS 06/05/24 PRN muscle spasm #30 tabs Allergies Allergy/AdvReac Type Severity Reaction Status Date / Time No Known Drug Allergies Allergy Verified 07/12/24 17:29 [facility] Medical History (Updated 07/12/24 @ 18:58 by Yung Bustillo MD) Acute sinusitis ?J01.90 - Acute sinusitis, unspecified (ICD-10) 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 - Other obesity due to excess calories (ICD-10) Major depression, single episode ?F32.9 - Major depressive disorder, single episode, unspecified (ICD-10) Surgical History (Updated 06/22/24 @ 08:58 by Ce Christensen PA-C) S/P tendon repair (06/12/24) ?Z98.890 - Other specified postprocedural states (ICD-10) S/P vasectomy ?Z98.52 - Vasectomy status (ICD-10) History of lumbar discectomy (2007) ?Z98.890 - Other specified postprocedural states (ICD-10) History of arthroscopy of left knee (1995) ?Z98.890 - Other specified postprocedural states (ICD-10) Family History Father Coronary artery disease Diabetes Mother Diabetes Unknown Coronary artery disease Skin cancer Bone cancer Thyroid cancer Maternal Grandmother Stroke Social History (Updated 06/05/24 @ 21:37 by Dustin Walter MD) Narrative: Social history: . He has 3 sons ages 10, 7, 5, 4wks. 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 has family near [place]. Habits: No tobacco or recreational drug use. Alcohol use at 3 drinks/wk. What is your current living situation?: I presently have a place to live Problems where you live: no known problems In the past 12 months, utilities in danger of being shut off: no In the past 12 mos, have been you worried that your food would run out before you had money to buy more?: never true In the past 12 mos, the food you bought just didn't last and you didn't have money to buy more?: never true Smoking Status: Never smoker Do you use any of these nicotine containing products: None Second hand tobacco smoke exposure: No How often do you have a drink containing alcohol: never How often do you have six or more drinks on one occasion: Never AUDIT-C Alcohol total score: 0 Non-prescribed substance use: denies use How often does anyone, including family, friends and others, physically hurt you : never How often does anyone, including family, friends and others, insult or talk down to you: never How often does anyone, including family, friends and others, threaten you with harm: never How often does anyone, including family, friends and others, scream or curse at you: never Exam Const: Vital Signs, click to edit/add: Vital Signs - 24 hr 07/12/24 16:52 07/12/24 17:08 07/12/24 17:15 Temperature 101 F H Pulse Rate 115 H 114 H Pulse Rate [Pulse Oximeter] 105 H Respiratory Rate 24 Blood Pressure 102/65 Blood Pressure [Le ft Upper Arm] 112/63 Pulse Oximetry 97 94 96 Oxygen Delivery Me thod Room Air 07/12/24 17:16 07/12/24 17:37 07/12/24 17:45 Temperature Pulse Rate 102 H 102 H 98 Pulse Rate [Pulse Oximeter] Respiratory Rate Blood Pressure 114/72 Blood Pressure [Le ft Upper Arm] Pulse Oximetry 98 97 97 Oxygen Delivery Me thod 07/12/24 17:46 07/12/24 18:00 07/12/24 18:01 Temperature 102 F H Pulse Rate 99 101 H Pulse Rate [Pulse Oximeter] Respiratory Rate Blood Pressure Blood Pressure [Le ft Upper Arm] Pulse Oximetry 98 96 Oxygen Delivery Me thod 07/12/24 18:01 07/12/24 18:15 07/12/24 18:32 Temperature Pulse Rate 95 95 94 Pulse Rate [Pulse Oximeter] Respiratory Rate Blood Pressure 99/67 108/68 Blood Pressure [Le ft Upper Arm] Pulse Oximetry 95 94 95 Oxygen Delivery Me thod 07/12/24 18:33 Temperature Pulse Rate 95 Pulse Rate [Pulse Oximeter] Respiratory Rate Blood Pressure Blood Pressure [Le ft Upper Arm] Pulse Oximetry 97 Oxygen Delivery Me thod Course Course ED Course: Reviewed records from urgent care visit today, note that at that time patient had temperature 103?, labs done at that visit with normal white blood cell count, normal hemoglobin, negative influenza and COVID test. Patient seen and examined, presents with nausea, vomiting, right-sided abdominal pain, and fever. On exam here, patient is tachycardic and febrile, appears ill, right-sided abdominal tenderness predominantly in the right lower quadrant. Labs ordered along with fluids and CT abdomen and pelvis. Consider appendicitis, diverticulitis, colitis, gastroenteritis, mesenteric adenitis. Reevaluation(s) Time of Reevaluation #1: 17:47 Reevaluation #1: Labs independently interpreted by me with normal lactate. CT scan of the abdomen pelvis and interpreted by me without acute findings. Time of Reevaluation #2: 18:56 Reevaluation #2: Patient recheck, updated with findings and plan. Patient has not had any diarrhea while in the emergency department. We discussed symptom management at home and patient is stable for discharge Vital Signs Vital signs: Initial Vital Signs Temperature 101 F H 07/12/24 16:52 Temperature Source Temporal Artery Scan 07/12/24 16:52 Pulse Rate 105 H 07/12/24 16:52 Respiratory Rate 24 07/12/24 16:52 Blood Pressure 112/63 07/12/24 16:52 Blood Pressure Mean 79 07/12/24 16:52 Blood Pressure Position Right Lateral 07/12/24 16:52 Pulse Oximetry 97 07/12/24 16:52 Oxygen Delivery Method Room Air 07/12/24 16:52 Vital Signs Temperature 101 F H 07/12/24 16:52 Pulse Rate 105 H 07/12/24 16:52 Respiratory Rate 24 07/12/24 16:52 Blood Pressure 112/63 07/12/24 16:52 Pulse Oximetry 97 07/12/24 16:52 Oxygen Delivery Method Room Air 07/12/24 16:52 Temperature 102 F H 07/12/24 18:01 Pulse Rate 95 07/12/24 18:33 Respiratory Rate 24 07/12/24 16:52 Blood Pressure 108/68 07/12/24 18:32 Pulse Oximetry 97 07/12/24 18:33 Oxygen Delivery Method Room Air 07/12/24 16:52 Medications Administered Medications: Discontinued Medications Generic Name Dose Route Start Last Admin Trade Name Freq PRN Reason Stop Dose Admin Sodium Chloride 1,000 mls @ 1,000 mls/hr 07/12/24 17:15 07/12/24 18:30 0.9 % Sodium Chloride 1000 Ml IV 07/12/24 18:14 Infused .Q1H GINGER Infusion Sodium Chloride 1,000 mls @ 6,000 mls/hr 07/12/24 18:22 07/12/24 18:35 0.9 % Sodium Chloride 1000 Ml IV 07/12/24 18:31 6,000 mls/hr .Q10M GINGER Administration Ketorolac Tromethamine 15 mg 07/12/24 17:04 07/12/24 17:38 Ketorolac 15 Mg/Ml Inj IVP 07/12/24 17:05 15 mg ONCE ONE Administration Ondansetron HCl 4 mg 07/12/24 17:03 07/12/24 17:39 Ondansetron 2 Mg/Ml Inj IVP 07/12/24 17:04 4 mg ONCE ONE Administration Medical Decision Making Lab Data Labs: Lab Results 07/12/24 Range/Units 17:20 Sodium 136 (135-149) mmol/L Potassium 3.8 (3.6-5.1) mmol/L Chloride 101 (96-114) mmol/L Carbon Dioxide 26 (20-32) mmol/L Anion Gap 9 (7-15) mEq/L BUN 15 (5-24) mg/dL Creatinine 1.1 (0.5-1.5) mg/dL Estimated Creat Clear 106.88 Estimated GFR 84 ml/min Glucose 103 (60-115) mg/dL Lactate 1.2 (0.5-1.9) mmol/L Calcium 9.0 (8.4-10.6) mg/dL Magnesium 2.0 (1.5-2.6) mg/dL Total Bilirubin 0.8 (0.1-1.5) mg/dL Direct Bilirubin 0.0 (0.0-0.5) mg/dL AST 28 (12-35) U/L ALT 31 (4-50) U/L Alkaline Phosphatase 54 (40-150) U/L Total Protein 7.0 (6.0-8.3) g/dL Albumin 4.6 (3.3-5.0) g/dL Lipase 50 (23-300) U/L Discharge Plan Discharge Clinical Impression: Nausea vomiting and diarrhea, Rain-Miller tear Patient Disposition: Home, Self-Care Condition: Stable Instructions: Acute Nausea and Vomiting (DC), Acute Diarrhea (ED) Additional Instructions: Take Zofran as needed for nausea and vomiting. Take Imodium if your having more than 6 watery stools a day Take Pepcid twice a day for 1 week Liquid diet for 24 hours and advance as tolerated. Make sure your getting plenty of fluids Activity Level: Activity as Tolerated Discharge Diet: Regular Prescriptions: No Action multivitamin with iron Tablet 1 tab PO QDAY bupropion HCl 150 mg tablet extended release 24 hr 150 mg PO QAM Qty: 90 1RF fluticasone propionate [Flonase Allergy Relief] 50 mcg/actuation spray,suspension 1 spray intranasal QDAY Rx Instructions: administer into each nostril cyclobenzaprine 5 mg tablet 5 - 10 mg PO QHS PRN (Reason: muscle spasm) Qty: 30 2RF escitalopram oxalate 10 mg tablet 10 mg PO QDAY Qty: 90 1RF Follow Up/Referrals: Dustin Walter MD [Primary Care Provider] - Stand Alone Forms: GIROPT[facility] Info Instructions
--- NOTE | 2024-07-12 17:03 | CRLHL7_ITS ---
For Patients: As a result of the Century Cures Act, medical imaging exams and procedure reports are released immediately into your electronic medical record. You may view this report before your referring provider. If you have questions, please contact your health care provider. INDICATION: FEVER, RT-SIDED ABD PAIN, N/V/D. TECHNIQUE: CT abdomen and pelvis acquired with 150 cc Isovue 370 IV contrast. COMPARISON: March 19, 2022. FINDINGS: Lower chest: Bilateral basilar dependent linear and ground-glass opacities likely atelectasis. Liver: Hepatic steatosis. No suspicious hepatic lesions identified. Gallbladder and bile ducts: Unremarkable. No stones or inflammation. No biliary dilatation. Pancreas: Unremarkable. No mass or inflammation. Spleen: Unremarkable. Normal in size. No masses. Adrenal glands: Unremarkable. No nodules. Kidneys: Unremarkable. No suspicious masses, stones, or hydronephrosis. GI tract: No bowel obstruction. Appendix is not visualized. Vasculature: Abdominal aorta is normal in caliber. Mesenteric arteries are patent. Lymph nodes: No lymphadenopathy. Peritoneum/Abdominal Wall: Unremarkable. No sign of mass or infiltration. No free air or significant free fluid. Pelvis: Unremarkable. Bones: Unremarkable for age. IMPRESSION: 1. no acute intra-abdominal process identified. 2. Hepatic steatosis. Please note that all CT scans at this facility use dose modulation, iterative reconstruction, and/or weight-based dosing when appropriate to reduce radiation dose to as low as reasonably achievable. Dictated by Denia Parrish MD @ 07/12/2024 6:26:49 PM (Electronically Signed)
[2024-07-12 17:28] LABS: Lactate* 1.2 mmol/L (0.5-1.9)
[2024-07-12] MEDS: KETOROLAC 15 MG/ML inj IVP (17:38)
[2024-07-12] MEDS: 0.9 % SODIUM CHLORIDE 1000 ml 1,000 ML IV (17:39)
[2024-07-12] MEDS: ONDANSETRON 2 MG/ML inj 4 MG IVP (17:39)
[2024-07-12 17:49] LABS: Albumin* 4.6 g/dL (3.3-5.0)
[2024-07-12 17:52] LABS: Alanine Aminotransferase* 31 U/L (4-50); Alkaline Phosphatase* 54 U/L (40-150); Aspartate Amino Transferase* 28 U/L (12-35); Bilirubin Total* 0.8 mg/dL (0.1-1.5)
[2024-07-12 18:07] LABS: Chloride* 101 mmol/L (96-114)
[2024-07-12 18:08] LABS: Potassium* 3.8 mmol/L (3.6-5.1); Sodium* 136 mmol/L (135-149)
[2024-07-12 18:10] LABS: Creatinine* 1.1 mg/dL (0.5-1.5); Est. Creatinine Clearance* 106.88; Estimated Glomerular Filt Rate 84 ml/min; Lipase* 50 U/L (23-300)
[2024-07-12 18:11] LABS: Anion Gap 9 mEq/L (7-15); Blood Urea Nitrogen* 15 mg/dL (5-24); Carbon Dioxide* 26 mmol/L (20-32); Glucose* 103 mg/dL (60-115)
[2024-07-12] MEDS: 0.9 % SODIUM CHLORIDE 1000 ml 1,000 ML 6000 ML IV (18:35)
[2024-07-12] MEDS: PANTOPRAZOLE SODIUM 40 MG INJ IVP (19:17)
== END 2024-07-12 19:19 | disposition home or self-care (01) ==
PROVIDERS: Emergency Provider Family Medicine; PCP Family Medicine
DX: R11.2 Nausea with vomiting, unspecified (principal); R19.7 Diarrhea, unspecified; K22.6 Gastro-esophageal laceration-hemorrhage syndrome
CPT/HCPCS: 36415; 74177; 80048; 80076; 81001; 83605; 83690; 83735; 87045; 87046; 87427; 87493; 96361; 96374; 96375; 99284; 99285; J1885; J2405; J2470; J7030; Q9967

== ENCOUNTER 2024-09-27 07:30 | Outpatient (RCR) | payer BC, SELFPAY | END 2025-01-25 23:59 | disposition home or self-care (01) | PROVIDERS: PCP Family Medicine; Visit Provider Orthopaedic Surgery | DX: Z48.89 Encounter for other specified surgical aftercare (principal); Z51.89 Encounter for other specified aftercare | CPT/HCPCS: 97032; 97110; 97140; 97165; 97530; X5282 ==